=== PATIENT | female | born 1975 | race Hispanic/Latino ===

== ENCOUNTER 2017-09-16 07:33 | Day surgery (SDC) | payer MEDICARE, BC ==
[2017-09-14 08:48] VITALS: BMI 18.6
[2017-09-16] MEDS ORDERED: Propofol 10 mg/ml Inj (20 ML) ONE (09:24)
[2017-09-16] MEDS ORDERED: Sodium Chloride 0.9% 1,000 ML IV SCH (10:00)
[2017-09-16 10:48] VITALS: BP 124/65; PULSE 68; RESP 20; TEMP 98.5; O2SAT 100
== END 2017-09-16 11:09 | disposition home or self-care (01) ==
LOC: ENDO 07:33
PROVIDERS: ATTEND Specialist
DX: K21.9 Gastro-esophageal reflux disease without esophagitis (principal); K29.50 Unspecified chronic gastritis without bleeding; K31.9 Disease of stomach and duodenum, unspecified; R07.89 Other chest pain; E03.9 Hypothyroidism, unspecified; E27.1 Primary adrenocortical insufficiency; K59.00 Constipation, unspecified
CPT/HCPCS: 43239; 84703; 88305; 88312; 88342; J2704; J7040 ×2